=== PATIENT | female | born 1960 | race Caucasian/White ===

== ENCOUNTER → 2017-10-17 | Outpatient (CLI) | payer OTHER | LOC: M.MRI 10-13 10:39 | DX: M47.897 Other spondylosis, lumbosacral region (principal); M76.9 Unspecified enthesopathy, lower limb, excluding foot; Z88.8 Allergy status to other drugs, medicaments and biological substances; Z91.041 Radiographic dye allergy status ==

== ENCOUNTER → 2018-01-15 | Outpatient (CLI) | payer OTHER | LOC: M.ULTRA 09:17 | DX: R10.2 Pelvic and perineal pain (principal); G89.29 Other chronic pain; I10 Essential (primary) hypertension; E78.5 Hyperlipidemia, unspecified; E03.9 Hypothyroidism, unspecified; Z87.891 Personal history of nicotine dependence ==

== ENCOUNTER → 2018-04-24 | Outpatient (CLI) | payer OTHER | LOC: M.RAD 08:49 | DX: Z12.31 Encounter for screening mammogram for malignant neoplasm of breast (principal) ==

== ENCOUNTER → 2018-11-25 | Outpatient (CLI) | payer OTHER | LOC: M.RAD 11:20 | DX: J98.4 Other disorders of lung (principal); I10 Essential (primary) hypertension ==

== ENCOUNTER → 2018-12-21 | Outpatient (CLI) | payer OTHER | LOC: M.CT 10:59 | DX: I25.10 Atherosclerotic heart disease of native coronary artery without angina pectoris (principal); J98.4 Other disorders of lung; K50.90 Crohn's disease, unspecified, without complications; K75.3 Granulomatous hepatitis, not elsewhere classified; Z88.8 Allergy status to other drugs, medicaments and biological substances ==

== ENCOUNTER → 2019-02-12 | Outpatient (CLI) | payer OTHER ==
[2019-02-12] VITALS (8 sets, daily range): BP systolic 104–142; BP diastolic 60–83
[~2019-02-12] VITALS: Ht 157.5 cm; Wt 82.1 kg
[~2019-02-12] MED LIST: BACTRIM DS TAB1 EACH; COLACE100 MG PO; COZAAR 25 MG TA25 M2 PO; HYDROCHLOROTH12.5 M1 PO; INDERAL XL80 MG PO; LANTUS SUBQ; LYRICA 50 MG50 MG PO; METFORMIN HCL500 MG PO; NASONEX17 GM NASAL; NEXIUM40 MG PO; NORVASC5 MG PO; OSPHENA60 MG PO; SYNTHROID137 MC1; TRAZODONE 150150 M1 PO; TRIAMCINOLONE A80 G2 IRRIG; VITAMIN D3400 UNI2 PO; XANAX 0.25 MG0.25 MG PO
[2019-02-12 08:23] LABS: HEMATOCRIT 38.9 % (37.0-47.0); HEMOGLOBIN 12.9 gm/dL (12.0-15.0); MCH 30.8 pg (26.0-34.0); MCHC 33.3 g/dL (28.0-37.0); MCV 92.6 fL (80.0-100.0); MPV 8.2 fl. (7.2-11.1); RBC 4.2 mil/uL (4.20-5.00); RDW-CV 13.3 % (10.5-14.5); WBC 6.9 thou/uL (4.0-11.0)
[2019-02-12 08:28] LABS: ANION GAP 12 mmol/L (7-16); BUN 15 mg/dL (7-18); CALCIUM 9.2 mg/dL (8.5-10.1); CHLORIDE 100 mmol/L (98-107); CO2 23 mmol/L (21-32); CREATININE 1.1 mg/dL (0.6-1.3); GLUCOSE 370 mg/dL (70-99); POTASSIUM 4.7 mmol/L (3.5-5.1); SODIUM 135 mmol/L (136-145)
[2019-02-12 08:33] LABS: APTT 24.6 Seconds (25.0-31.3); PROTIME 10.7 Seconds (9.20-11.50)
[2019-02-12 08:38] LABS: ALBUMIN 3.6 g/dL (3.4-5.0); ALKALINE PHOSPHATASE 64 U/L (46-116); CHOLESTEROL 235 mg/dL (<200); HDL CHOLESTEROL 56 mg/dL (>40); LDL CHOLESTEROL 150 mg/dL (<100); SGOT 30 U/L (15-37); SGPT 54 U/L (30-65); TC:HDL 4.2 Ratio (Not establshd); TOTAL BILIRUBIN 0.2 mg/dL (<0.1-1.0); TOTAL PROTEIN 8.2 g/dL (6.4-8.2); TRIGLYCERIDE 146 mg/dL (<150); VLDL 29 mg/dL (<40)
[2019-02-12 08:41] LABS: SERUM ASSESSMENT Clear
--- NOTE | 2019-02-12 11:22 | EKG ---
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
--- NOTE | 2019-02-12 13:16 | CARD ---
[address] [address] CARDIAC CATH REPORT Name: LUKASZ HAN Room: [facility] Jose#: [id number] Admission: 02/12/19 Attend Phys: Eliazar Rubio MD, F Discharge: Date of : 64 Report #: [id number] THIS REPORT FOR: //name// APPROVED REPORT Study performed: 02/12/2019 08:12:20 Patient Details Patient Status: Out-Patient Room #: The patient is a 58 year-old female Event Personnel Eliazar Rubio Sonar Subsystem Equipment Operator, Melissa Evans RN, Eze Theodore AUTOMATION TENDER Monitor, Gail Puga RTR Scrub Procedures Performed Left Heart Catheterization Indication Chest pain Risk Factors Hypercholesterolemia, Hypertension, Diabetes Admission/Lab Medications/Medications given during procedure Heparin Unfract. Procedure Narrative The patient was brought electively to the Cardiac Catheterization Laboratory and was prepped and draped in a sterile manner. The right wrist was infiltrated with 1% Lidocaine subcutaneous anesthesia. A Slender Glidesheath sheath was inserted into the right radial artery. Coronary angiography was performed using coronary diagnostic catheters. The right coronary system was accessed and visualized with a JR4 5fr catheter. The left coronary system was accessed and visualized with a JL 3.5 5fr catheter. The left ventricle was accessed and visualized with a PC: Angled Pig 5fr catheter. Left ventricular/Aortic Valve gradient assessed via catheter pullback. Left ventriculogram was performed in MCCALLUM projection. Closure device was deployed with a 6 Fr Vasc-Band Reg 24cm. The patient tolerated the procedure well and there were no complications associated with the procedure. There was no hematoma. Intraoperative Conscious Sedation Sedation start time: 1001 Case end Time: [place] [address] CARDIAC CATH REPORT Name: LUKASZ HAN Room: [facility]#: [id number] Admission: 02/12/19 Attend Phys: Eliazar Rubio MD, F Discharge: Date of : 64 Report #: [id number] Fentanyl 25 mcg Versed 2 mg Fluoro Time: 4.5 minutes Dose: DAP 85086 cGycm2 609 mGy Contrast Type and Amount: Visipaque 50 ml Diagnostic Cath Left Main 0% stenosis LAD 30% distal stenosis Diagonal 2 50% proximal stenosis Circumflex 0% stenosis Right Coronary 30% mid stenosis Ramus 0% stenosis Left Ventriculography Left Ventriculography was not performed. Hemodynamics The aortic pressure is 118/65 mmHg with a mean of 63 mmHg. The left ventricular pressure is 115/10 mmHg with a mean of mmHg. The left ventricular end diastolic pressure is 14 mmHg. There was no gradient across the aortic valve upon pullback. Pullback from the left ventricle to the aorta revealed no gradient across the aortic valve. Conclusion 1. minimal cad with 30% stenosis of distal lad and 30% stenosis of mid rca 2. suspect noncardiac chest pain Recommendations Aggressive Medical Therapy <ELECTRONICALLY SIGNED> By: Eliazar Rubio MD, [facility] 02/12/19 1315 14 14Datenisha Rubio MD, [facility] /INF
== END | disposition home or self-care (01) ==
LOC: M.CL 07:44
PROVIDERS: Internal Medicine Cardiovascular Disease
DX: I25.10 Atherosclerotic heart disease of native coronary artery without angina pectoris (principal); I10 Essential (primary) hypertension; E11.9 Type 2 diabetes mellitus without complications; E03.9 Hypothyroidism, unspecified; K21.9 Gastro-esophageal reflux disease without esophagitis; Z98.890 Other specified postprocedural states; Z87.891 Personal history of nicotine dependence; Z79.899 Other long term (current) drug therapy; Z79.4 Long term (current) use of insulin

== ENCOUNTER → 2019-04-27 | Outpatient (CLI) | payer OTHER | LOC: M.RAD 08:31 | DX: Z12.31 Encounter for screening mammogram for malignant neoplasm of breast (principal) ==

== ENCOUNTER → 2019-06-02 | Outpatient (CLI) | payer OTHER ==
--- NOTE | 2019-06-07 10:48 | PF ---
[address] [address] PULMONARY FUNCTION REPORT Name: LUKASZ HAN Room: [facility]#: [id number] Admission: 06/02/19 Attend Phys: Rosa Mullins MD Discharge: Date of : 64 Report #: [id number] THIS REPORT FOR: //name// CC: Liset Duong DATE OF SERVICE: 06/02/2019 FINDINGS: The FEV1/FVC ratio is 77% with an FVC of 78 and an FEV1 of 77. There was no bronchodilator response. TLC is normal at 78%. There is no increase in residual volumes. The diffusion capacity is 74%, uncorrected for hemoglobin. The PFTs do not show any evidence of obstructive or restrictive lung disease. However, it is important to note that this patient was unable to produce reproducible spirometric data and attempts were not acceptable by ACCP guidelines. <ELECTRONICALLY SIGNED> By: Kimberly Glasgow DO 06/07/19 1048 [id number] [id number] Glasgow DO /nt
== END ==
LOC: M.PUL 09:35
DX: R06.02 Shortness of breath (principal)

== ENCOUNTER → 2020-03-07 | Outpatient (CLI) | payer OTHER | LOC: M.MRI 03-01 09:05 | PROVIDERS: ATTEND Internal Medicine | DX: G45.9 Transient cerebral ischemic attack, unspecified (principal) ==

== ENCOUNTER → 2020-04-28 | Outpatient (CLI) | payer OTHER | LOC: M.RAD 09:02 | PROVIDERS: ATTEND Internal Medicine | DX: Z12.31 Encounter for screening mammogram for malignant neoplasm of breast (principal) ==

== ENCOUNTER → 2020-06-01 | Outpatient (CLI) | payer OTHER | LOC: M.RAD 11:07 | PROVIDERS: ATTEND Internal Medicine | DX: J44.9 Chronic obstructive pulmonary disease, unspecified (principal) ==